=== PATIENT | male | born 1965 | race Caucasian/White ===

== ENCOUNTER 2016-09-19 21:01 | Emergency (ER) | payer MEDICAID ==
[2016-09-19] MEDS ORDERED: LORazepam 2 MG/ML SYRINGE IM STA (22:36)
[2016-09-19] MEDS ORDERED: LORazepam 0.5 MG TABLET ONE ×2 (22:39→23:49)
[2016-09-19] MEDS ORDERED: LORazepam 2 MG/ML SYRINGE ONE (22:43)
[2016-09-19] MEDS ORDERED: LORazepam 0.5 MG TABLET PO STA (23:37)
== END 2016-09-19 23:53 | disposition home or self-care (01) ==
DX: F41.9 Anxiety disorder, unspecified (principal)
CPT/HCPCS: 96372; 99283; A9270; J2060